=== PATIENT | male | born 1945 | race Caucasian/White ===

== ENCOUNTER 2017-07-21 17:03 | Emergency (ER) | payer MEDICARE, OTHER ==
[~2017-07-21] VITALS: Ht 172.7 cm; Wt 104.0 kg
[2017-07-21] VITALS (10 sets, daily range): BP systolic 106–159; BP diastolic 63–95; PULSE 98–170; RESP 16–20; TEMP 97.4; O2SAT 90–98
[~2017-07-21 17:03] MED LIST: CART120C2 PO; DRON400 PO; RAMI10CA35 PO; RIVA20 PO; TYLE3 PO
--- NOTE | 2017-07-21 17:19 | PD ---
HPI Chief Complaint: Cardiac Complaint Time Seen by Provider: 17:19 Travel History International Travel<30 days: No Contact w/Intl Traveler<30days: No Traveled to known affect area: No History of Present Illness HPI 72-year-old male came to the emergency room sent from the urgent care for A. fib with RVR. Patient has history of atrial fibrillation and is on Xarelto. He says he has been coughing for past 3 days had gone to urgent care and was diagnosed with bronchitis. He was given medications including prednisone. Today he started noticing some palpitations about 2 hours prior to going to the urgent care. He went there to be checked and as soon as they checked his pulse it was high the asked him to come to the emergency room. Patient denies of any chest pain. He has been slightly short of breath. No history of syncopal episodes. Heart rate in triage was 120s-170s. [facility] Past Medical History Narrative Medical List of his past medical, surgical, social and family history is reviewed from the nursing note Hx Anticoagulant Therapy: Yes Arthritis: No Asthma: No Atrial Fibrillation: Yes Autoimmune Disease: No Blood Disorders: No Anxiety: No Depression: No Heart Rhythm Problems: Yes (AFIB) Cardiovascular Problems: Yes High Cholesterol: Yes Chemotherapy: No Chest Pain: Yes (CARDIAC WORKUP DONE - DX= GERD) Congestive Heart Failure: No COPD: No Cerebrovascular Accident: No Diabetes: No Diminished Hearing: No Endocrine: No Gastrointestinal Disorders: Yes GERD: Yes (GERD ) Glaucoma: No Genitourinary: No Headaches: No Hepatitis: No Hiatal Hernia: No Hypertension: Yes Immune Disorder: No Kidney Stones: No Musculoskeletal: No Neurologic: Yes (PASSED OUT WHILE DRIVING 1997 AND 1999) Psychiatric: No Reproductive: No Respiratory: Yes (PNEUMONIA 2008) Migraines: No Myocardial Infarction: No Pneumonia: Yes (2010) Radiation Therapy: No Renal Failure: No Seizures: No Sickle Cell Disease: No Sleep Apnea: No Thyroid Disease: No Ulcer: No Past Surgical History Abdominal Surgery: No AICD: No Appendectomy: No Arteriovenous Shunt: No Cardiac Surgery: No Cholecystectomy: Yes Ear Surgery: No Endocrine Surgery: No Eye Surgery: No Genitourinary Surgery: No Gynecologic Surgery: No Insulin Pump: No Joint Replacement: No Oral Surgery: No Pacemaker: No Thoracic Surgery: No Other Surgery: Yes (NASAL SURGERY) Social History Alcohol Use: Yes (BEER - WEEKLY) Tobacco Use: Yes (CIGARS - A COUPLE TIMES A YEAR) Substance Use: No Allergies-Medications (Allergen,Severity, Reaction): Coded Allergies: midazolam (Unverified Allergy, Severe, "HARD TIME WAKING UP", 07/21/17) Uncoded Allergies: MED TO PUT HIM TO SLEEP (Allergy, Severe, Anaphylaxis, 07/29/10) Comments List of his allergies reviewed from the nursing note. Reported Meds & Prescriptions Reported Meds & Active Scripts Active Reported Ezetimibe 10 Mg Tab 10 Mg PO DAILY Ventolin Hfa 18 GM Inh (Albuterol Sulfate) 90 Mcg/Act Aer 1 Puff INH Q4H PRN Xarelto (Rivaroxaban) 20 Mg Tab 20 Mg PO DAILY Multaq (Dronedarone) 400 Mg Tab 400 Mg PO BID Narrative Medication List of his home medications reviewed from the nursing note. Review of Systems Except as stated in HPI: all other systems reviewed are Neg Cardiovascular: Positive: Palpitations Respiratory: Positive: Shortness of Breath Physical Exam Narrative GENERAL: Awake, alert, mild distress SKIN: Focused skin assessment warm/dry. HEAD: Atraumatic. Normocephalic. EYES: Pupils equal and round. No scleral icterus. No injection or drainage. ENT: No nasal bleeding or discharge. Mucous membranes pink and moist. NECK: Trachea midline. No JVD. CARDIOVASCULAR: Irregularly irregular rhythm with tachycardia. No murmur appreciated. RESPIRATORY: No accessory muscle use. Clear to auscultation. Breath sounds equal bilaterally. GASTROINTESTINAL: Abdomen soft, non-tender, nondistended. Hepatic and splenic margins not palpable. MUSCULOSKELETAL: No obvious deformities. No clubbing. No cyanosis. No edema. NEUROLOGICAL: Awake and alert. No obvious cranial nerve deficits. Motor grossly within normal limits. Normal speech. PSYCHIATRIC: Appropriate mood and affect; insight and judgment normal. Data Data Last Documented VS Vital Signs Date Time Temp Pulse Resp B/P (MAP) Pulse Ox O2 Delivery O2 Flow Rate FiO2 07/21/17 20:35 07/21/17 20:23 98 20 95 Room Air 07/21/17 19:30 4.00 07/21/17 17:10 97.4 Orders Orders Electrocardiogram (07/21/17 17:38) Basic Metabolic Panel (Bmp) (07/21/17 17:38) Complete Blood Count With Diff (07/21/17 17:38) Magnesium (Mg) (07/21/17 17:38) Prothrombin Time / Inr (Pt) (07/21/17 17:38) Troponin I (07/21/17 17:38) Chest, Single Ap (07/21/17 17:38) Ecg Monitoring (07/21/17 17:38) Bilateral Bp Monitoring (07/21/17 17:38) Iv Access Insert/Monitor (07/21/17 17:38) Oximetry (07/21/17 17:38) Oxygen Administration (07/21/17 17:38) Sodium Chloride 0.9% Flush (Ns Flush) (07/21/17 17:45) B-Type Natriuretic Peptide (07/21/17 17:38) Verapamil Inj (Isoptin Inj) (07/21/17 17:45) Verapamil Inj (Isoptin Inj) (07/21/17 18:15) Diltiazem Cd (Cardizem Cd) (07/21/17 18:45) Verapamil (Isoptin) (07/21/17 18:45) Sodium Chlor 0.9% 1000 Ml Inj (Ns 1000 M (07/21/17 19:45) Diltiazem Cd (Cardizem Cd) (07/21/17 20:15) Ed Discharge Order (07/21/17 20:21) Electrocardiogram (07/21/17 18:51) Labs Laboratory Tests Test 07/21/17 17:50 White Blood Count 12.9 TH/MM3 Red Blood Count 5.01 MIL/MM3 Hemoglobin 15.4 GM/DL Hematocrit 46.1 % Mean Corpuscular Volume 92.0 FL Mean Corpuscular Hemoglobin 30.8 PG Mean Corpuscular Hemoglobin Concent 33.5 % Red Cell Distribution Width 13.5 % Platelet Count 252 TH/MM3 Mean Platelet Volume 8.9 FL Neutrophils (%) (Auto) 67.0 % Lymphocytes (%) (Auto) 19.3 % Monocytes (%) (Auto) 7.3 % Eosinophils (%) (Auto) 3.4 % Basophils (%) (Auto) 3.0 % Neutrophils # (Auto) 8.7 TH/MM3 Lymphocytes # (Auto) 2.5 TH/MM3 Monocytes # (Auto) 0.9 TH/MM3 Eosinophils # (Auto) 0.4 TH/MM3 Basophils # (Auto) 0.4 TH/MM3 CBC Comment DIFF FINAL Differential Comment Prothrombin Time 11.5 SEC Prothromb Time International Ratio 1.1 RATIO Blood Urea Nitrogen 18 MG/DL Creatinine 0.95 MG/DL Random Glucose 110 MG/DL Calcium Level 8.9 MG/DL Magnesium Level 2.4 MG/DL Sodium Level 141 MEQ/L Potassium Level 4.0 MEQ/L Chloride Level 105 MEQ/L Carbon Dioxide Level 28.2 MEQ/L Anion Gap 8 MEQ/L Estimat Glomerular Filtration Rate 78 ML/MIN Troponin I LESS THAN 0.02 NG/ML B-Type Natriuretic Peptide 108 PG/ML MDM Medical Decision Making Medical Screen Exam Complete: Yes Emergency Medical Condition: Yes Medical Record Reviewed: Yes Interpretation(s) Twelve-lead EKG was reviewed by me. A. fib, RVR, right axis deviation, right bundle branch block. Heart rate of 155 bpm Differential Diagnosis A. fib with RVR, congestive heart failure Narrative Course 6:29 PM blood test results are back and within normal limit. Patient initially was given 5 mg of IV verapamil which brought the heart rate down momentarily but picked up again. I have ordered a second dose of 10 mg of IV verapamil. I reassess him. 6:36 PM the heart rate after the second dose of verapamil went down to the 90s but occasionally goes up to 120s. I have ordered p.o. verapamil and asked for a second EKG. Patient is going to get a chest x-ray done as well. If the heart rate comes down and the rest of the test results are within normal limit patient should be able to go home. 7:19 PM awaiting for the chest x-ray. Case was signed over to the oncoming ER physician. Critical Care Narrative Aggregate critical care time was 30 minutes. Time to perform other separately billable procedures was not included in the critical care time. My time did not include minutes spent treating any other patients simultaneously or on activities that did not directly contribute to the patient's treatment. The services I provided to this patient were to treat and/or prevent clinically significant deterioration that could result in: A. fib with RVR, verapamil bolus 2 I provided critical care services requiring my management, as noted below: Chart data review, documentation time, medication orders and management, vital sign assessments/reviewing monitor data, ordering and reviewing lab tests, ordering and interpreting/reviewing x-rays and diagnostic studies, care of the patient and discussion of the patient with the admitting physicians. Procedures EKG Prior to Arrival: No Diagnosis Primary Impression: Atrial fibrillation with RVR Additional Impression: Shortness of breath Taryn Dodson MD July 21, 2017 17:19
[2017-07-21] MEDS ORDERED: EZET1TAB8 PO (17:28)
[2017-07-21] MEDS ORDERED: XARE20TA PO (17:28)
[2017-07-21] MEDS ORDERED: MULT400T PO (17:28)
[2017-07-21] MEDS ORDERED: VENTAER INH (17:28)
[2017-07-21] MEDS ORDERED: VERAPAMIL HCL 5 MG/2 ML VIAL IV PUSH ONE ×2 (17:45→18:15)
[2017-07-21] MEDS ORDERED: SODIUM CHLORIDE 0.9% FLUSH 10 ML FLUSH IVF PRN (17:45)
[2017-07-21 18:00] LABS: AUTOMATED NEUTROPHIL # 8.7 TH/MM3 (1.8-7.7); BASOPHIL # 0.4 TH/MM3 (0-0.2); EOSINOPHIL # 0.4 TH/MM3 (0-0.4); EOSINOPHIL % 3.4 % (0.0-4.0); HEMATOCRIT 46.1 % (39.0-51.0); HEMOGLOBIN 15.4 GM/DL (13.0-17.0); LYMPH % 19.3 % (9.0-44.0); LYMPHOCYTE # 2.5 TH/MM3 (1.0-4.8); MEAN CORPUSCULAR HEMOGLOBIN 30.8 PG (27.0-34.0); MEAN CORPUSCULAR HGB CONC 33.5 % (32.0-36.0); MEAN PLATELET VOLUME 8.9 FL (7.0-11.0); MONO % 7.3 % (0.0-8.0); MONOCYTE # 0.9 TH/MM3 (0-0.9); PLATELET COUNT 252 TH/MM3 (150-450); RED BLOOD COUNT 5.01 MIL/MM3 (4.50-5.90); RED CELL DISTRIBUTION WIDTH 13.5 % (11.6-17.2); WHITE BLOOD COUNT 12.9 TH/MM3 (4.0-11.0)
[2017-07-21 18:08] LABS: CHLORIDE 105 MEQ/L (98-107); SODIUM (NA) 141 MEQ/L (136-145)
[2017-07-21 18:11] LABS: BICARBONATE 28.2 MEQ/L (21.0-32.0); BLOOD UREA NITROGEN 18 MG/DL (7-18); CALCIUM 8.9 MG/DL (8.5-10.1); GLUCOSE,RANDOM 110 MG/DL (74-106); MAGNESIUM 2.4 MG/DL (1.5-2.5)
[2017-07-21 18:13] LABS: INTERNATIONAL NORMALIZED RATIO 1.1 RATIO; PROTHROMBIN TIME - PATIENT 11.5 SEC (9.8-11.6)
[2017-07-21 18:15] LABS: CREATININE 0.95 MG/DL (0.60-1.30); GLOMERULAR FILTRATION RATE 78 ML/MIN (>89)
[2017-07-21 18:19] LABS: TROPONIN I LESS THAN 0.02 NG/ML (0.02-0.05)
[2017-07-21] MEDS ORDERED: DILTIAZEM-CD 240 MG CAP ER PO ONE (18:45)
[2017-07-21] MEDS ORDERED: VERAPAMIL HCL 120 MG TAB PO ONE (18:45)
[2017-07-21] MEDS ORDERED: SODIUM CHLOR 0.9% 1000 ML INJ 1,000 ML IV ONE (19:45)
--- NOTE | 2017-07-21 19:53 | RADRPT ---
EXAM DATE: 07/21/2017 7:45 PM EDT AGE/SEX: 72 years / Male INDICATIONS: Cough and rapid heart rate CLINICAL DATA: This is the patient's initial encounter. Patient reports that signs and symptoms have been present for 3 days and indicates a pain score of 3/10. MEDICAL/SURGICAL HISTORY: Hypertension. Gastroesophageal reflux disease. AFib, Pneumonia None . COMPARISON: [facility], CHEST SINGLE AP, 06/04/2015. . FINDINGS: A single AP view of the chest demonstrates the lungs to be symmetrically aerated without evidence of mass, infiltrate or effusion. Minimal linear atelectasis or scarring at the bases. The cardiomediasti nal contours are unremarkable. Osseous structures are intact. CONCLUSION: Minimal linear atelectasis or scarring at the lung bases. Electronically signed by: Nolan Salazar MD 07/21/2017 7:51 PM EDT
[2017-07-21] MEDS ORDERED: DILTIAZEM-CD 120 MG CAP ER PO ONE (20:15)
--- NOTE | 2017-07-21 20:20 | PD ---
Physical Exam Date Seen by Provider: July 21, 2017 Narrative This patient was initially seen and treated by Dr. Dodson. He presented to us from an urgent care center because of atrial fibrillation with a rapid ventricular response. He has been treated here with both IV and oral verapamil. His heart rate has slowed. However, his blood pressure has also dropped. Blood pressure has been treated with an IV fluid bolus. The patient's reason for presenting to urgent care was dyspnea and bronchitis. His O2 sats here have been a bit low. Therefore, prior to discharge, I did a walking test. He was able to ambulate about the department on room air and maintaining his oxygen 95%. Therefore, he is stable for discharge to home. He is on Multaq for rate control. I will have him follow up with his doctor tomorrow for more treatment as needed. Data Data Last Documented VS Vital Signs Date Time Temp Pulse Resp B/P (MAP) Pulse Ox O2 Delivery O2 Flow Rate FiO2 07/21/17 19:30 114 16 106/76 (86) 94 Nasal Cannula 4.00 07/21/17 17:10 97.4 Orders Orders Electrocardiogram (07/21/17 17:38) Basic Metabolic Panel (Bmp) (07/21/17 17:38) Complete Blood Count With Diff (07/21/17 17:38) Magnesium (Mg) (07/21/17 17:38) Prothrombin Time / Inr (Pt) (07/21/17 17:38) Troponin I (07/21/17 17:38) Chest, Single Ap (07/21/17 17:38) Ecg Monitoring (07/21/17 17:38) Bilateral Bp Monitoring (07/21/17 17:38) Iv Access Insert/Monitor (07/21/17 17:38) Oximetry (07/21/17 17:38) Oxygen Administration (07/21/17 17:38) Sodium Chloride 0.9% Flush (Ns Flush) (07/21/17 17:45) B-Type Natriuretic Peptide (07/21/17 17:38) Verapamil Inj (Isoptin Inj) (07/21/17 17:45) Verapamil Inj (Isoptin Inj) (07/21/17 18:15) Diltiazem Cd (Cardizem Cd) (07/21/17 18:45) Verapamil (Isoptin) (07/21/17 18:45) Sodium Chlor 0.9% 1000 Ml Inj (Ns 1000 M (07/21/17 19:45) Diltiazem Cd (Cardizem Cd) (07/21/17 20:15) Labs Laboratory Tests Test 07/21/17 17:50 White Blood Count 12.9 TH/MM3 Red Blood Count 5.01 MIL/MM3 Hemoglobin 15.4 GM/DL Hematocrit 46.1 % Mean Corpuscular Volume 92.0 FL Mean Corpuscular Hemoglobin 30.8 PG Mean Corpuscular Hemoglobin Concent 33.5 % Red Cell Distribution Width 13.5 % Platelet Count 252 TH/MM3 Mean Platelet Volume 8.9 FL Neutrophils (%) (Auto) 67.0 % Lymphocytes (%) (Auto) 19.3 % Monocytes (%) (Auto) 7.3 % Eosinophils (%) (Auto) 3.4 % Basophils (%) (Auto) 3.0 % Neutrophils # (Auto) 8.7 TH/MM3 Lymphocytes # (Auto) 2.5 TH/MM3 Monocytes # (Auto) 0.9 TH/MM3 Eosinophils # (Auto) 0.4 TH/MM3 Basophils # (Auto) 0.4 TH/MM3 CBC Comment DIFF FINAL Differential Comment Prothrombin Time 11.5 SEC Prothromb Time International Ratio 1.1 RATIO Blood Urea Nitrogen 18 MG/DL Creatinine 0.95 MG/DL Random Glucose 110 MG/DL Calcium Level 8.9 MG/DL Magnesium Level 2.4 MG/DL Sodium Level 141 MEQ/L Potassium Level 4.0 MEQ/L Chloride Level 105 MEQ/L Carbon Dioxide Level 28.2 MEQ/L Anion Gap 8 MEQ/L Estimat Glomerular Filtration Rate 78 ML/MIN Troponin I LESS THAN 0.02 NG/ML B-Type Natriuretic Peptide 108 PG/ML [facility] Supervised Visit with BEL: No Narrative Course CBC & BMP Diagram 07/21/17 17:50 Calcium Level 8.9, Magnesium Level 2.4 Last Impressions Chest X-Ray 07/21/17 4278 Signed Impressions: CONCLUSION: Minimal linear atelectasis or scarring at the lung bases. trop < 0.02 BNP 108 Diagnosis Primary Impression: Atrial fibrillation with RVR Additional Impression: Shortness of breath Patient Instructions: A-fib (Atrial Fibrillation) (DC), General Instructions Med/Other Pt SpecificInfo: Prescription(s) given Disposition: 01 DISCHARGE HOME Condition: Stable Oeters,Lily Kalyani MD July 21, 2017 20:20
--- NOTE | 2017-07-22 13:49 | EKG ---
Date Performed: 07/21/2017 Time Performed: 17:28:53 PTAGE: 72 years EKG: ATRIAL FIBRILLATION WITH RAPID VENTRICULAR RESPONSE RIGHT BUNDLE BRANCH BLOCK ABNORMAL ECG PREVIOUS TRACING : 11/19/2015 07.29 Atrial fibrillation replaces Sinus rhythm . This is associated with rapid rate and ST depression. Cannot rule out ischemia. Clinical correlatio n is recommended. DOCTOR: Adonay Mancuso Interpretating Date/Time 07/22/2017 13:47:23
--- NOTE | 2017-07-22 13:49 | EKG ---
Date Performed: 07/21/2017 Time Performed: 18:51:56 PTAGE: 72 years EKG: ATRIAL FIBRILLATION WITH RAPID VENTRICULAR RESPONSE RIGHT BUNDLE BRANCH BLOCK ABNORMAL ECG PREVIOUS TRACING 07/21/17 Rate has slowed with some normalization of ST segments. DOCTOR: Adonay Mancuso Interpretating Date/Time 07/22/2017 13:48:14
== END 2017-07-21 20:40 | disposition home or self-care (01) ==
LOC: PHEFT 17:03
DX: I48.91 Unspecified atrial fibrillation (principal); R06.02 Shortness of breath; I45.10 Unspecified right bundle-branch block; E78.00 Pure hypercholesterolemia, unspecified; K21.9 Gastro-esophageal reflux disease without esophagitis; I10 Essential (primary) hypertension; F17.290 Nicotine dependence, other tobacco product, uncomplicated
CPT/HCPCS: 71045; 80048; 83735; 83880; 84484; 85025; 85610; 93005; 96361; 96374; 96376; 99291; J7030